=== PATIENT | female | born 1960 | race Caucasian/White ===

== ENCOUNTER 2018-08-21 14:26 | Emergency (ER) | payer MEDICARE ==
[~2018-08-21] VITALS: Ht 162.6 cm; Wt 71.2 kg
[2018-08-21] MEDS ORDERED: KETOROLAC 60 MG/2 ML VIAL. IM ONE (17:15)
[2018-08-21 17:27] LABS: HEMATOCRIT 42.9 % (36.0-47.0); HEMOGLOBIN 14.4 g/dL (12.0-15.5); RED BLOOD COUNT 4.29 x10^6/uL (3.50-5.40); RED CELL DISTRIBUTION WIDTH 14.9 % (11.5-14.5); WHITE BLOOD COUNT 5.3 x10^3/uL (4.0-11.0)
[2018-08-21 17:28] LABS: BILIRUBIN,URINE NEGATIVE (NEG); CLARITY,URINE CLEAR; COLOR,URINE YELLOW; NITRITE,URINE NEGATIVE (NEG); PROTEIN,URINE NEGATIVE (NEG-TRACE); UROBILINOGEN,URINE 0.2 mg/dL (0.2 mg/dL)
[2018-08-21 17:30] VITALS: BP 153/95
[2018-08-21] MEDS ORDERED: KETOROLAC 30 MG/ML VIAL. IV ONE (17:30)
[2018-08-21 17:34] LABS: RBC,URINE OCC /HPF (0-2); WBC,URINE RARE /HPF (0-4)
[2018-08-21 17:35] LABS: BACTERIA,URINE FEW /HPF (0-FEW); SQUAMOUS EPITHELIAL CELL,UR FEW /LPF
[2018-08-21 17:35] LABS: CALCIUM 8.9 mg/dL (8.5-10.1); CREATININE 0.7 mg/dL (0.6-1.0); GFR 86.6; POTASSIUM 4.1 mmol/L (3.5-5.1)
[2018-08-21 17:36] LABS: BARBITURATES NEG (NEG); BENZODIAZEPINES NEG (NEG); CANNABINOIDS NEG (NEG); COCAINE NEG (NEG); METHADONE NEG (NEG); OPIATES NEG (NEG); PHENCYCLIDINE NEG (NEG)
[2018-08-21 17:38] LABS: AMPHETAMINE/METHAMPHETAMINE NEG (NEG)
[2018-08-21 17:43] LABS: ALBUMIN/GLOBULIN RATIO 0.9 (1.0-1.7); TOTAL BILIRUBIN 0.2 mg/dL (0.2-1.0); TOTAL PROTEIN 8.3 g/dL (6.4-8.2)
--- NOTE | 2018-08-21 18:07 | RAD ---
Examination: CT HEAD AND MAXILLOFACIAL WO History: FALL ON CONCRETE LAST NIGHT R EYE SWELLING PREV SENT Comparison/Correlation: 12/21/2009 CT head without contrast Findings: Axial images of the head and maxillofacial structures were provided. Sagittal and coronal reformatted images of the maxillofacial structures were provided. Globes and optic nerves are unremarkable. Ventricles are normal size. No intracranial hemorrhage, midline shift, or mass effect. Right forehead subcutaneous hematoma is small in size. Soft tissue swelling of the right eyelid and periorbital region noted. Partial opacification of the right frontal sinus is present. Mucosal thickening of ethmoid air cells noted. Mucosal thickening of maxillary sinus is evident. Bony septa involves the left maxillary sinus. There is no depressed fracture or bony destructive change. Opacification of the left maxillary sinus ostium is present. Impression: Chronic paranasal sinusitis. Right periorbital soft tissue swelling. Right forehead subcutaneous hematoma. Electronically signed by: Paolo Villatoro MD (08/21/2018 6:03 PM) [facility]
--- NOTE | 2018-08-21 18:16 | PHYS DOC ---
Past Medical History Past Medical History: Alcoholism Past Surgical History: Additional Past Surgical Histo: leg sx Smoking: Cigarettes Alcohol Use: Heavy Drug Use: None Adult General Chief Complaint Chief Complaint: MECHANICAL FALL HPI HPI Patient is a 58 year old female who presents with complaining of a fall and injury to her face and needs medical clearance for rehabilitation admission. Patient state she had a fall last night when she was sleeping on her dark after alcohol intoxication and injured her right side of face and head without loss of consciousness. Patient states she presented to alcohol detox today for admission but the requested medical clearance regarding her fall patient denies focal neuro deficit, headache, nausea and vomiting, suicidal and homicidal ideation. Review of Systems Review of Systems Constitutional: Denies fever or chills [] Eyes: Denies change in visual acuity, redness, or eye pain [] HENT: Denies nasal congestion or sore throat [] Respiratory: Denies cough or shortness of breath [] Cardiovascular: No additional information not addressed in HPI [] GI: Denies abdominal pain, nausea, vomiting, bloody stools or diarrhea [] : Denies dysuria or hematuria [] Musculoskeletal: Denies back pain or joint pain [] Integument: Denies rash or skin lesions [] Neurologic: Denies headache, focal weakness or sensory changes [] Endocrine: Denies polyuria or polydipsia [] All other systems were reviewed and found to be within normal limits, except as documented in this note. Current Medications Current Medications Current Medications Medications (Trade) Dose Ordered Sig/Amish Start Time Stop Time Status Last Admin Dose Admin Ketorolac Tromethamine (Toradol 30mg Vial) 30 mg 1X ONCE 08/21/18 17:30 08/21/18 17:31 DC 08/21/18 17:21 30 MG Ketorolac Tromethamine (Toradol Im) 60 mg 1X ONCE 08/21/18 17:15 08/21/18 17:19 DC Allergies Allergies Allergies Coded Allergies Type Severity Reaction Last Updated Verified No Known Drug Allergies 08/21/18 No Physical Exam Physical Exam Constitutional: Well nourished, mild distress, non-toxic appearance, smell of alcohol on breath. [] HENT: Normocephalic, right periorbital old ecchymoses and edema without eye injury, bilateral external ears normal, oropharynx moist, no oral exudates, nose normal. [] Eyes: PERRLA, EOMI, conjunctiva normal, no discharge. [] Neck: Normal range of motion, no tenderness, supple, no stridor. [] Cardiovascular:Heart rate regular rhythm, no murmur [] Lungs & Thorax: Bilateral breath sounds clear to auscultation [] Abdomen: Bowel sounds normal, soft, no tenderness, no masses, no pulsatile masses. [] Skin: Warm, dry, no erythema, no rash. [] Back: No tenderness, no CVA tenderness. [] Extremities: No tenderness, no cyanosis, no clubbing, ROM intact, no edema. [] Neurologic: Alert and oriented X 3, normal motor function, normal sensory function, no focal deficits noted. [] Psychologic: Affect normal, judgement normal, mood normal. [] Current Patient Data Vital Signs Vital Signs Date Time Temp Pulse Resp B/P (MAP) Pulse Ox O2 Delivery O2 Flow Rate FiO2 08/21/18 17:30 88 21 96 08/21/18 16:04 98.0 148/91 (110) Room Air 98.0 Lab Values Laboratory Tests Test 08/21/18 16:20 08/21/18 16:40 Urine Collection Type Unknown Urine Color Yellow Urine Clarity Clear Urine pH 7.0 Urine Specific [place] 1.025 Urine Protein Negative mg/dL (NEG-TRACE) Urine Glucose (UA) Negative mg/dL (NEG) Urine Ketones (Stick) Negative mg/dL (NEG) Urine Blood Negative (NEG) Urine Nitrite Negative (NEG) Urine Bilirubin Negative (NEG) Urine Urobilinogen Dipstick 0.2 mg/dL (0.2 mg/dL) Urine Leukocyte Esterase Negative (NEG) Urine RBC Occ /HPF (0-2) Urine WBC Rare /HPF (0-4) Urine Squamous Epithelial Cells Few /LPF Urine Bacteria Few /HPF (0-FEW) Urine Mucus Mod /LPF Urine Opiates Screen Neg (NEG) Urine Methadone Screen Neg (NEG) Urine Barbiturates Neg (NEG) Urine Phencyclidine Screen Neg (NEG) Urine Amphetamine/Methamphetamine Neg (NEG) Urine Benzodiazepines Screen Neg (NEG) Urine Cocaine Screen Neg (NEG) Urine Cannabinoids Screen Neg (NEG) Urine Ethyl Alcohol Pos (NEG) White Blood Count 5.3 x10^3/uL (4.0-11.0) Red Blood Count 4.29 x10^6/uL (3.50-5.40) Hemoglobin 14.4 g/dL (12.0-15.5) Hematocrit 42.9 % (36.0-47.0) Mean Corpuscular Volume 100 fL (79-100) Mean Corpuscular Hemoglobin 34 pg (25-35) Mean Corpuscular Hemoglobin Concent 34 g/dL (31-37) Red Cell Distribution Width 14.9 % (11.5-14.5) H Platelet Count 233 x10^3/uL (140-400) Sodium Level 144 mmol/L (136-145) Potassium Level 4.1 mmol/L (3.5-5.1) Chloride Level 104 mmol/L (98-107) Carbon Dioxide Level 28 mmol/L (21-32) Anion Gap 12 (6-14) Blood Urea Nitrogen 10 mg/dL (7-20) Creatinine 0.7 mg/dL (0.6-1.0) Estimated GFR (Cockcroft-Gault) 86.6 BUN/Creatinine Ratio 14 (6-20) Glucose Level 92 mg/dL (70-99) Calcium Level 8.9 mg/dL (8.5-10.1) Total Bilirubin 0.2 mg/dL (0.2-1.0) Aspartate Amino Transferase (AST) 29 U/L (15-37) Alanine Aminotransferase (ALT) 28 U/L (14-59) Alkaline Phosphatase 66 U/L (46-116) Total Protein 8.3 g/dL (6.4-8.2) H Albumin 4.0 g/dL (3.4-5.0) Albumin/Globulin Ratio 0.9 (1.0-1.7) L Ethyl Alcohol Level 198 mg/dL (0-10) H Laboratory Tests 08/21/18 16:40 Laboratory Tests 08/21/18 16:40 EKG EKG [] Radiology/Procedures Radiology/Procedures [facility] [address] [place] [address] IMAGING REPORT Signed PATIENT: MAME FOSTER ACCOUNT: [id number] : 1960 LOCATION: ER AGE: 58 SEX: F EXAM STATUS: REG ER ORD. PHYSICIAN: ADITYA MCPHERSON MD REASON: fall last night PROCEDURE: CT HEAD AND MAXILLOFACIAL WO Examination: CT HEAD AND MAXILLOFACIAL WO History: FALL ON CONCRETE LAST NIGHT R EYE SWELLING PREV SENT Comparison/Correlation: 12/21/2009 CT head without contrast Findings: Axial images of the head and maxillofacial structures were provided. Sagittal and coronal reformatted images of the maxillofacial structures were provided. Globes and optic nerves are unremarkable. Ventricles are normal size. No intracranial hemorrhage, midline shift, or mass effect. Right forehead subcutaneous hematoma is small in size. Soft tissue swelling of the right eyelid and periorbital region noted. Partial opacification of the right frontal sinus is present. Mucosal thickening of ethmoid air cells noted. Mucosal thickening of maxillary sinus is evident. Bony septa involves the left maxillary sinus. There is no depressed fracture or bony destructive change. Opacification of the left maxillary sinus ostium is present. Impression: Chronic paranasal sinusitis. Right periorbital soft tissue swelling. Right forehead subcutaneous hematoma. Electronically signed by: Paolo Villatoro MD (08/21/2018 6:03 PM) [facility] DICTATED and SIGNED BY: CHRISTIAN BURNETTE MD DATE: 08/21/181750 Course & Med Decision Making Course & Med Decision Making Pertinent Labs and Imaging studies reviewed. (See chart for details) Evaluation of patient in ER showed 58-year-old female patient with a fall last night and needs for medical clearance for detox admission. Patient had old ecchymosis of right periorbital area with unremarkable CT and labs except for blood alcohol of 198. Patient was alert and oriented and ambulated without problem. Patient was medically cleared for detox admission. Dragon Disclaimer Dragon Disclaimer This electronic medical record was generated, in whole or in part, using a voice recognition dictation system. Departure Departure Impression: Primary Impression: Facial contusion Additional Impressions: Fall at home Tobacco abuse Tobacco abuse counseling Encounter for medical clearance for patient hold Alcohol abuse Disposition: HOME, SELF-CARE (at 1813 for admission to alcohol detox at [facility]) Condition: STABLE Referrals: UNKNOWN PCP NAME (PCP) Patient Instructions: Alcohol Problems Additional Instructions: Drink plenty of liquids Follow-up with alcohol detox as a scheduled for today Return to ER if not getting better Problem Qualifiers ADITYA MCPHERSON MD Aug 21, 2018 18:16
== END 2018-08-21 18:45 | disposition home or self-care (01) ==
LOC: ER 14:26
DX: S05.11XA Contusion of eyeball and orbital tissues, right eye, initial encounter (principal); F10.10 Alcohol abuse, uncomplicated; Y90.6 Blood alcohol level of 120-199 mg/100 ml; Z01.818 Encounter for other preprocedural examination; F17.210 Nicotine dependence, cigarettes, uncomplicated; Z71.6 Tobacco abuse counseling; J32.9 Chronic sinusitis, unspecified; W18.39XA Other fall on same level, initial encounter; Y93.89 Activity, other specified; Y92.89 Other specified places as the place of occurrence of the external cause; Y99.8 Other external cause status
CPT/HCPCS: 36415; 70450; 70486; 80053; 80307; 81001; 85027; 96374; 99284; G0480; J1885